=== PATIENT | female | born 1940 | race Caucasian/White ===

== ENCOUNTER → 2017-12-15 | Outpatient (REF) | payer MEDICARE, OTHER ==
[2017-12-15 18:56] LABS: FERRITIN 133 NG/ML (8-252); IRON (FE) 116 UG/DL (50-170); PERCENT SATURATION 36.5 % (13.2-45.0); TOTAL IRON BINDING CAPACITY 318 UG/DL (250-450)
== END ==
LOC: M LAB REF 17:27
DX: D69.3 Immune thrombocytopenic purpura (principal)
CPT/HCPCS: 83550

== ENCOUNTER → 2020-09-03 | Outpatient (REF) | payer MEDICARE, OTHER ==
[~2020-09-03] MED LIST: ASPI81TA26 PO; CALC1TAB23 PO; CALCTAB9 PO; CELE1CAP7 PO; HYDR500C3 PO; SERT50TA29 PO; VALS80TA PO; [UNRECOGNIZED DRUG - CODE] PO
[2020-09-03 14:13] LABS: FERRITIN 1066 NG/ML (8-252); IRON (FE) 108 UG/DL (50-170); PERCENT SATURATION 43.7 % (13.2-45.0); TOTAL IRON BINDING CAPACITY 247 UG/DL (250-450)
[2020-09-03 14:18] LABS: FOLATE 7.6 NG/ML; VITAMIN B12 LEVEL > 2000 PG/ML
== END ==
LOC: M LAB REF 12:29
PROVIDERS: ATTEND Family Medicine
DX: D64.9 Anemia, unspecified (principal); D69.6 Thrombocytopenia, unspecified

== ENCOUNTER → 2020-09-03 | Outpatient (REF) | payer MEDICARE, OTHER | LOC: M LAB REF 12:33 | PROVIDERS: ATTEND Family Medicine | DX: D64.9 Anemia, unspecified (principal); D69.6 Thrombocytopenia, unspecified ==

== ENCOUNTER 2020-09-04 13:12 | Outpatient (CLI) | payer MEDICARE, OTHER ==
[~2020-09-04] VITALS: Ht 152.4 cm; Wt 81.8 kg
[2020-09-04] MEDS ORDERED: diphenhydrAMINE 25 MG PO PO ONE (13:30)
[2020-09-04] MEDS ORDERED: ACETAMINOPHEN 650 MG PO PO ONE (13:30)
[2020-09-04 14:28] VITALS: BP 137/58
[2020-09-04 14:50] VITALS: BP 130/58
[2020-09-04 15:35] VITALS: BP 132/54
[2020-09-04 16:00] VITALS: BP 114/54
[2020-09-04 16:33] VITALS: BP 147/59
== END 2020-09-04 16:30 | disposition home or self-care (01) ==
LOC: M INFU 13:12
PROVIDERS: ATTEND Specialist
DX: D47.3 Essential (hemorrhagic) thrombocythemia (principal)
CPT/HCPCS: 36430; P9016

== ENCOUNTER 2020-09-07 13:19 | Observation (INO) | payer MEDICARE, OTHER ==
[2020-09-07] VITALS (10 sets, daily range): BP systolic 116–145; BP diastolic 46–82
[~2020-09-07] VITALS: Ht 152.4 cm; Wt 81.7 kg
[~2020-09-07 13:19] MED LIST changes: +ASPIRIN 81MG ENTERIC TABLET PO SCH
[2020-09-07 14:35] LABS: MEAN CORPUSCULAR HEMOGLOBIN 38.6 pg (27.0-33.0); MEAN CORPUSCULAR VOLUME 113.3 fl (80.0-96.0); RED BLOOD COUNT 1.66 10^6/uL (4.00-5.40); WHITE BLOOD COUNT 1.9 10^3/uL (4.0-10.0)
[2020-09-07 14:40] LABS: HEMOGLOBIN 6.4 g/dl (12.0-15.5); PLATELET COUNT, AUTOMATED 71 10^3/uL (150-450)
[2020-09-07] MEDS ORDERED: LOSA50TA88 PO (14:50)
[2020-09-07] MEDS ORDERED: HYDR12.55 PO (14:50)
[2020-09-07 14:52] LABS: INR 1.15
[2020-09-07 15:00] LABS: ALBUMIN 2.8 GM/DL (3.2-5.2); ALT/SGPT 50 U/L (12-78); BILIRUBIN,DIRECT 0.4 MG/DL (0.0-0.2); BILIRUBIN,TOTAL 1.1 MG/DL (0.2-1.0); BLOOD UREA NITROGEN 26 MG/DL (7-18); CALCIUM LEVEL 8.2 MG/DL (8.8-10.2); CARBON DIOXIDE LEVEL 28 MEQ/L (21-32); CHLORIDE LEVEL 104 MEQ/L (98-107); CREATININE FOR GFR 1.02 MG/DL (0.55-1.30); GLOMERULAR FILTRATION RATE 55.8 (>39); GLUCOSE, FASTING 90 MG/DL (70-100); LIPASE 273 U/L (73-393); POTASSIUM SERUM 3.7 MEQ/L (3.5-5.1); SODIUM LEVEL 139 MEQ/L (136-145); TOTAL PROTEIN 6.2 GM/DL (6.4-8.2)
[2020-09-07] MEDS ORDERED: FLUTISP NARES (15:06)
[2020-09-07 15:07] LABS: HEMATOCRIT 18.8 % (36.0-47.0)
[2020-09-07] MEDS ORDERED: CYAN2500 SL (15:28)
--- NOTE | 2020-09-07 15:45 | HPEPDOC ---
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 The patient states she's had worsening lethargy, cold/hot flashes, decreased appetite, increased her cigarette with exertion over the past several weeks. She is followed regularly by hematology/oncology for chronic myeloproliferative disorder and anemia. This anemia was believed to be secondary to hydroxyurea and over the past year she has needed several adjustments of this medication. At the beginning of August 2020 her hematology oncologist decreased the dose to 2 tabs daily instead of alternating between a higher dose and 2 tabs during the week. She was recently told over this past 1 week to stop hydroxyurea completely due to concerns about worsening anemia from it. On 09/04/2020 the patient had outpatient PRBC transfusion of 1 unit for hemoglobin done outpatient of 6.3. She states she initially felt slightly improved from this transfusion but then today continued to have symptoms. This is when she called her primary care doctor. Her primary care doctor then referred her to come to the emergency room for further evaluation. Patient denied lightheadedness, dizziness, palpitations, bleeding, chest pains, nausea, vomiting, fevers, chills. In the emergency room, vital signs were stable. Labs showed pancytopenia with WBC 1.9, H/H 6.4/18.8, platelets 71. Creatinine was 1.02 and within normal limits. T bili elevated at 1.1, D bili 0.4, AST slightly high at 40. She had an abnormal ECG showing sinus bradycardia and a left bundle branch block. There were no old ECGs were on file. The patient has no cardiac history but states that she had an echocardiogram done one month ago by her primary care for a murmur. She states she was told echocardiogram showed nonemergent things that [facility] is followed up by him as outpatient. Due to low H/H despite recent transfusion the patient was admitted to hospitalist service for symptomatic anemia requiring transfusion. REVIEW OF SYSTEMS: Neg except for what is mentioned above PAST MEDICAL HISTORY: Chronic myeloproliferative disorder / essential thrombocytopenia on chronic hydroxyurea Arthritis Hypertension Heart murmur Old LBBB Depression PAST SURGICAL HISTORY: BM aspiration 09/2011 Breast lumpectomy FAMILY HISTORY: Father: coronary artery disease. at 78 y/o Mother: lung cancer and breast cancer. at 89 y/o SOCIAL HISTORY: She does not smoke. Social alcohol use. Denies illicit drugs. 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 Lives near [place] PCP: Ciro Charles Heme/onc: Dr. Knox Ambulates with cane No advanced directives, HCP Full Code ALLERGIES: Please see below. HOME MEDICATIONS: Please see below. PHYSICAL EXAMINATION: VS: Please see below CONSTITUTIONAL: No acute distress, resting comfortably, AAO x 3 EYES: PERRLA, EOM intact HENT, MOUTH: Normocephalic, atraumatic, moist mucous membranes NECK: SUPPLE, no JVD, no lymphadenopathy, no carotid bruit CV: Regular rate and rhythm, S1S2 normal, 2/6 systolic murmur, no rubs/gallops RESPIRATORY: Clear to auscultation bilaterally, no rales/rhonchi/wheezes GI: BS positive in 4 quadrants, soft, nontender, nondistended, no rebound or guarding, no organomegaly : Deferred MUSCULOSKELETAL: Normal ROM. No cyanosis, clubbing, swelling, joint deformity, nonpitting lower extremity edema INTEGUMENTARY: Intact, no rashes, no lesions, no erythema NEUROLOGIC: Cranial Nerves II-XII are intact, no focal deficits PSYCHIATRIC: Mood and affect are normal LABORATORY DATA: Please see below IMAGING: None ASSESSMENT: 79-year-old female with past medical history of chronic myeloproliferative disorder/essential thrombocytopenia, hypertension, heart murmur, questionable old left bundle branch block, depression admitted to hospitalist service for symptomatic anemia requiring transfusion. PLAN: Pancytopenia / essential thrombocytopenia / worsening symptomatic anemia possibly 2/2 to hydroxyurea -Hx of chronic myeloproliferative disorder -Patient has been struggling with low blood levels with hydroxyurea as o/p for some time, followed by Dr. Knox heme/onc -Recent 1 U PRBC transfusion on 09/04/20 for Hgb 6.3 -H/H 6.4/18.8 today, to receive 2 U PRBC today, f/u post transfusion H/H -Hydroxyurea has been held for past 1 week per patient -MCV high, f/u Vit B12 and folate levels, occult blood -TB with Dr. Knox in the AM to discuss further treatment, plan HTN -Stable -C/w home med Heart murmur with LBBB (not known about per patient) -ECG showed LBBB, bradycardia -No prior ECG on file to compare -Echocardiogram done 1 mo ago per patient, will request records from PCP office -F/u troponin -C/w ASA (stop if occult +) -Tele Depression -Stable -C/w home med Sinus bradycardia -HR 60, asymptomatic -Not on meds to cause this -Monitor on tele Weakness 07/29 to anemia above -C/w treatment above -PT/OT Arthritis -C/w home celecoxib (stop if occult +) DVT px -SCD teds DISPOSITION: Admitted to observation status. To TB with Dr. Knox in AM. Plan is discharge home when medically improved. Vital Signs Vital Signs Date Time Temp Pulse Resp B/P (MAP) Pulse Ox O2 Delivery O2 Flow Rate FiO2 09/07/20 14:02 09/07/20 13:20 97.4 60 20 99 Room Air Laboratory Data Labs 24H Laboratory Tests 2 09/07/20 14:23: Neutrophils (%) (Auto) , Neutrophils # (Auto) , Nucleated Red Blood Cells % (auto) 0.0, Immature Platelet Fraction 4.3, Prothrombin Time 15.0H, Prothromb Time International Ratio 1.15, Anion Gap 7L, Glomerular Filtration Rate 55.8, Calcium Level 8.2L, Total Bilirubin 1.1H, Direct Bilirubin 0.4H, Aspartate Amino Transf (AST/SGOT) 40H, Alanine Aminotransferase (ALT/SGPT) 50, Alkaline Phosphatase 59, Total Protein 6.2L, Albumin 2.8L, Albumin/Globulin Ratio 0.8L, Lipase 273 09/07/20 15:06: CBC/BMP Laboratory Tests 09/07/20 14:23 Home Medications Scheduled Aspirin (Aspirin EC) 81 Mg Tab, 81 MG PO DAILY 1200 Calcium Citrate/Vitamin D3 (Calcium Cit 315-Vit D3 250 Cpt) 1 Each Tablet, 1 EACH PO DAILY Celecoxib (Celecoxib) 100 Mg Cap, 200 MG PO DAILY Cyanocobalamin (Vitamin B-12) (Vitamin B-12) 2,500 Mcg Tab.subl, 1,250 MCG SL DAILY Hydrochlorothiazide (Hydrochlorothiazide) 12.5 Mg Tablet, 1 TAB PO DAILY Losartan Potassium (Losartan Potassium) 50 Mg Tablet, 1 TAB PO DAILY Sertraline HCl (Sertraline HCl) 50 Mg Tab, 50 MG PO DAILY Scheduled PRN Fluticasone Propionate (Fluticasone Propionate) 16 Gm [place].susp, 1 SPRAY NARES DAILY PRN for CONGESTION Allergies Coded Allergies: No Known Allergies (Unverified , 05/23/18) A-FIB/CHADSVASC A-FIB History Current/History of A-Fib/PAF?: No Current PO Anticoag Therapy: No Age/Risk Factor Scoring CHADSVASC: CHADSVASC Response (Comments) Value Age Risk Factor Age >/= 75 years old 2 Gender Risk Factor Female 1 Hx of CHF No 0 Hx of HTN No 0 Hx of Stroke/TIA/or VTE No 0 Hx of Diabetes No 0 Hx of Vascular Disease No 0 Total 3 Treatment Treatment ordered: NONE Other anticoagulant ordered: CI with pancytopenia, symptomatic anemaAmanda Fox MD Sep 07, 2020 15:44
[2020-09-07 15:49] LABS: ATYPICAL LYMPH 4 % (0-5); LYMPHOCYTES 35 % (16-44); METAMYELOCYTES 1 % (0-0); MONOCYTES 16 % (0-5); MYELOCYTES 2 % (0-0); NEUTROPHILS 34 % (28-66)
[2020-09-07 15:50] LABS: ANISOCYTOSIS 2+; PLATELET ESTIMATE DECREASED (NORMAL)
[2020-09-07 15:57] LABS: RSV AMPLIFICATION NEGATIVE (NEGATIVE)
[2020-09-07] MEDS ORDERED: FLUTICASONE PROP 0.05% NASAL SPRAY 16 GM (FLONASE) NARES PRN (16:20)
[2020-09-07 17:44] LABS: TROPONIN I < 0.02 NG/ML (< 0.10)
--- NOTE | 2020-09-07 19:21 | ECGEPIP ---
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
[2020-09-07] MEDS ORDERED: ACETAMINOPHEN TAB 650MG DOSE (2X325MG) PO PRN (23:10)
[2020-09-07] MEDS ORDERED: RAMELTEON 8 MG TAB (ROZEREM) PO PRN (23:10)
[2020-09-07 23:19] LABS: HEMATOCRIT 26.1 % (36.0-47.0)
[2020-09-08 06:00] VITALS: BP 122/60
[2020-09-08 06:56] LABS: HEMATOCRIT 26.2 % (36.0-47.0); HEMOGLOBIN 8.9 g/dl (12.0-15.5); MEAN CORPUSCULAR HEMOGLOBIN 34.1 pg (27.0-33.0); MEAN CORPUSCULAR VOLUME 100.4 fl (80.0-96.0); RED BLOOD COUNT 2.61 10^6/uL (4.00-5.40); WHITE BLOOD COUNT 2.3 10^3/uL (4.0-10.0)
[2020-09-08 06:59] LABS: PLATELET COUNT, AUTOMATED 61 10^3/uL (150-450)
[2020-09-08 07:20] LABS: ALBUMIN 2.6 GM/DL (3.2-5.2); CREATININE FOR GFR 1.01 MG/DL (0.55-1.30); GLOMERULAR FILTRATION RATE 56.4 (>39); POTASSIUM SERUM 3.7 MEQ/L (3.5-5.1); TOTAL PROTEIN 5.8 GM/DL (6.4-8.2)
[2020-09-08 08:32] VITALS: BP 138/68
[2020-09-08] MEDS ORDERED: CelecoXIB (CeleBREX) 100 MG CAP PO SCH (09:00)
[2020-09-08] MEDS ORDERED: SERTRALINE HCL 50 MG TAB PO SCH (09:00)
[2020-09-08] MEDS ORDERED: hydroCHLOROthiazide 12.5 MG CAPSULE PO SCH (09:00)
[2020-09-08] MEDS ORDERED: LOSARTAN 50MG TABLET PO SCH (09:00)
[2020-09-08 10:44] LABS: FOLATE 8.7 NG/ML (>5.4); VITAMIN B12 LEVEL > 2000 PG/ML (247-911)
--- NOTE | 2020-09-08 16:17 | DS.PDOC ---
Discharge Summary General Date of Admission Sep 07, 2020 at 13:20 Date of Discharge 09/08/20 Attending Physician: Amanda Ag MD Discharge Summary HISTORY OF PRESENT ILLNESS: Patient is a 79-year-old female with past medical history of chronic myeloproliferative disorder/essential thrombocytopenia, hypertension, heart murmur, questionable old left bundle branch block, depression who presented to [facility] emergency room after being told by her primary care provider to come in for further evaluation for increased shortness of breath and weakness. The patient states she's had worsening lethargy, cold/hot flashes, decreased appetite, increased her cigarette with exertion over the past several weeks. She is followed regularly by hematology/oncology for chronic myeloproliferative disorder and anemia. This anemia was believed to be secondary to hydroxyurea and over the past year she has needed several adjustments of this medication. At the beginning of August 2020 her hematology oncologist decreased the dose to 2 tabs daily instead of alternating between a higher dose and 2 tabs during the week. She was recently told over this past 1 week to stop hydroxyurea completely due to concerns about worsening anemia from it. On 09/04/2020 the patient had outpatient PRBC transfusion of 1 unit for hemoglobin done outpatient of 6.3. She states she initially felt slightly improved from this transfusion but then today continued to have symptoms. This is when she called her primary care doctor. Her primary care doctor then referred her to come to the emergency room for further evaluation. Patient denied lightheadedness, dizziness, palpitations, bleeding, chest pains, nausea, vomiting, fevers, chills. In the emergency room, vital signs were stable. Labs showed pancytopenia with WBC 1.9, H/H 6.4/18.8, platelets 71. Creatinine was 1.02 and within normal limits. T bili elevated at 1.1, D bili 0.4, AST slightly high at 40. She had an abnormal ECG showing sinus bradycardia and a left bundle branch block. There were no old ECGs were on file. The patient has no cardiac history but states that she had an echocardiogram done one month ago by her primary care for a murmur. She states she was told echocardiogram showed nonemergent things that which is followed up by him as outpatient. Due to low H/H despite recent transfusion the patient was admitted to hospitalist service for symptomatic anemia requiring transfusion. HOSPITAL COURSE: Patient had 2 U PRBC transfused without any issues overnight. On AM of 09/08/20 patient's CBC showed much improvement. H/H corrected appropriately at 8.9/26.2. I discussed the case with Dr. 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 We will pass on to the office that Dr. Knox would also like weekly CBC's drawn. Patient was updated. Other anemia labs were ordered, including occult blood. I asked if there was any concern by hematology for other sources of bleeding and they are not- they think this is very much from the hydroxyurea she was on prior. [facility] patient felt improved and was discharged home in stable condition. PAST MEDICAL HISTORY: Chronic myeloproliferative disorder / essential thrombocytopenia on chronic hydroxyurea Arthritis Hypertension Heart murmur Old LBBB Depression PAST SURGICAL HISTORY: BM aspiration 09/2011 Breast lumpectomy FAMILY HISTORY: Father: coronary artery disease. at 78 y/o Mother: lung cancer and breast cancer. at 89 y/o SOCIAL HISTORY: She does not smoke. Social alcohol use. Denies illicit drugs. 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 Lives near [place] PCP: Ciro Charles Heme/onc: Dr. Knox Ambulates with cane No advanced directives, HCP Full Code ALLERGIES: Please see below. HOME MEDICATIONS: Please see below. PHYSICAL EXAMINATION: VS: Please see below CONSTITUTIONAL: No acute distress, resting comfortably, AAO x 3 EYES: PERRLA, EOM intact HENT, MOUTH: Normocephalic, atraumatic, moist mucous membranes NECK: SUPPLE, no JVD, no lymphadenopathy, no carotid bruit CV: Regular rate and rhythm, S1S2 normal, 2/6 systolic murmur, no rubs/gallops RESPIRATORY: Clear to auscultation bilaterally, no rales/rhonchi/wheezes GI: BS positive in 4 quadrants, soft, nontender, nondistended, no rebound or guarding, no organomegaly : Deferred MUSCULOSKELETAL: Normal ROM. No cyanosis, clubbing, swelling, joint deformity, nonpitting lower extremity edema INTEGUMENTARY: Intact, no rashes, no lesions, no erythema NEUROLOGIC: Cranial Nerves II-XII are intact, no focal deficits PSYCHIATRIC: Mood and affect are normal LABORATORY DATA: Please see below IMAGING: None ASSESSMENT: 79-year-old female with past medical history of chronic myeloproliferative disorder/essential thrombocytopenia, hypertension, heart murmur, questionable old left bundle branch block, depression admitted to hospitalist service for symptomatic anemia requiring transfusion. PLAN: Pancytopenia / essential thrombocytopenia / worsening symptomatic anemia possibly 2/2 to hydroxyurea -Hx of chronic myeloproliferative disorder -Patient has been struggling with low blood levels with hydroxyurea as o/p for some time -Recent 1 U PRBC transfusion on 09/04/20 for Hgb 6.3 -S/p 2 U PRBC this stay, improved H/H this AM of 8.9/26.2 -Hydroxyurea has been held for past 1 week per patient and will continue to be held per hematology/oncology -Discussed case with Dr. Knox prior to discharge. Patient will need f/u in his office in 1 week and weekly CBC's that he will follow. HTN -Stable -C/w home med Heart murmur with LBBB (not known about per patient) -ECG showed LBBB, bradycardia -Denies chest pain, shortness of breath, palpitations -No prior ECG on file to compare -Echocardiogram done 1 mo ago per patient -Trop neg -C/w ASA (stop if occult +) -Discussed the findings above with patient who will discuss with PCP. Recommend cardiology referral as o/p Depression -Stable -C/w home med Sinus bradycardia -HR 60, asymptomatic -Not on meds to cause this -Monitor o/p Arthritis -C/w home celecoxib DVT px -SCD teds DISPOSITION: Discharged today to f/u with PCP, hematology/oncology. REcommend cardiology referral as o/p TIME SPENT ON DISCHARGE: 35 minutes. Vital Signs/I&Os Vital Signs Date Time Temp Pulse Resp B/P (MAP) Pulse Ox O2 Delivery O2 Flow Rate FiO2 09/08/20 08:32 138/68 09/08/20 06:00 97.2 54 18 99 Room Air I&O- Last 24 Hours up to 6 AM 09/08/20 06:00 Intake Total 2245 ml Output Total 400 ml Balance 1845 ml Laboratory Data Labs 24H Laboratory Tests 2 09/08/20 06:09: Nucleated Red Blood Cells % (auto) 0.0, Anion Gap 6L, Glomerular Filtration Rate 56.4, Calcium Level 8.0L, Total Bilirubin 1.0, Aspartate Amino Transf (AST/SGOT) 36, Alanine Aminotransferase (ALT/SGPT) 52, Alkaline Phosphatase 62, Total Protein 5.8L, Albumin 2.6L, Albumin/Globulin Ratio 0.8L CBC/BMP Laboratory Tests 09/07/20 22:51 09/08/20 06:09 Discharge Medications Scheduled Aspirin (Aspirin EC) 81 Mg Tab, 81 MG PO DAILY, (Reported) 1200 Calcium Citrate/Vitamin D3 (Calcium Cit 315-Vit D3 250 Cpt) 1 Each Tablet, 1 EA CH PO DAILY, (Reported) Celecoxib (Celecoxib) 100 Mg Cap, 200 MG PO DAILY, (Reported) Cyanocobalamin (Vitamin B-12) (Vitamin B-12) 2,500 Mcg Tab.subl, 1,250 MCG SL DAILY, (Reported) Hydrochlorothiazide (Hydrochlorothiazide) 12.5 Mg Tablet, 1 TAB PO DAILY, (Reported) Losartan Potassium (Losartan Potassium) 50 Mg Tablet, 1 TAB PO DAILY, (Reported) Sertraline HCl (Sertraline HCl) 50 Mg Tab, 50 MG PO DAILY, (Reported) Scheduled PRN Fluticasone Propionate (Fluticasone Propionate) 16 Gm [place].susp, 1 SPRAY NARES DAILY PRN for CONGESTION, (Reported) Allergies Coded Allergies: No Known Allergies (Unverified , 05/23/18) Amanda Ag MD Sep 08, 2020 16:17
== END 2020-09-08 11:54 | disposition home or self-care (01) ==
LOC: M ED 13:19 → M ED INP 13:20 → ENRESERV 16:00 → M MSPAV 17:32
PROVIDERS: ADMIT Internal Medicine; ATTEND Internal Medicine
DX: D61.818 Other pancytopenia (principal); D47.1 Chronic myeloproliferative disease; D47.3 Essential (hemorrhagic) thrombocythemia; I10 Essential (primary) hypertension; R01.1 Cardiac murmur, unspecified; F32.9 Major depressive disorder, single episode, unspecified; R00.1 Bradycardia, unspecified; Z79.82 Long term (current) use of aspirin; Z79.899 Other long term (current) drug therapy
CPT/HCPCS: 36415; 36430; 80048; 80053; 80076; 82607; 82746; 83690; 84484; 85014; 85018; 85025; 85027; 85049; 85055; 85610; 86850; 86900; 86901; 86920; 87631; 93005; 93041; 99285; G0378; P9016

== ENCOUNTER 2020-10-09 14:11 | Outpatient (CLI) | payer MEDICARE, OTHER ==
[~2020-10-09] VITALS: Ht 152.4 cm; Wt 81.8 kg
[~2020-10-09 14:11] MED LIST changes: -ASPIRIN 81MG ENTERIC TABLET PO SCH; +CYAN2500 SL; +FLUTISP NARES; +HYDR12.55 PO; +LOSA50TA88 PO
[2020-10-09 14:20] VITALS: BP 137/64
[2020-10-09 14:52] VITALS: BP 125/59
[2020-10-09 16:05] VITALS: BP 159/70
[2020-10-09 16:15] VITALS: BP 159/70
== END 2020-10-09 16:20 | disposition home or self-care (01) ==
LOC: M INFU 14:11
PROVIDERS: ATTEND Specialist
DX: D64.9 Anemia, unspecified (principal); D47.3 Essential (hemorrhagic) thrombocythemia; D47.1 Chronic myeloproliferative disease; Z79.899 Other long term (current) drug therapy
CPT/HCPCS: 36415; 36430; 86850; 86900; 86901; 86920; P9016

== ENCOUNTER 2020-11-11 05:35 | Emergency (ER) | payer MEDICARE, OTHER ==
[~2020-11-11] VITALS: Ht 152.4 cm; Wt 79.1 kg
[2020-11-11] MEDS ORDERED: RAME8TAB2 (05:43)
[2020-11-11] MEDS ORDERED: MORPHINE 4 MG/ML 1ML VIAL/SYRINGE (J2270) IV ONE (07:15)
[2020-11-11] MEDS ORDERED: ONDANSETRON 4MG/2ML VIAL IV ONE (08:05)
[2020-11-11] MEDS ORDERED: ONDANSETRON 4MG/2ML VIAL As Ordered ONE (08:06)
[2020-11-11 08:16] LABS: HEMATOCRIT 25.3 % (36.0-47.0); HEMOGLOBIN 7.6 g/dl (12.0-15.5); MEAN CORPUSCULAR HEMOGLOBIN 30.9 pg (27.0-33.0); MEAN CORPUSCULAR VOLUME 102.8 fl (80.0-96.0); PLATELET COUNT, AUTOMATED 223 10^3/uL (150-450); RED BLOOD COUNT 2.46 10^6/uL (4.00-5.40); WHITE BLOOD COUNT 5.4 10^3/uL (4.0-10.0)
[2020-11-11 08:39] LABS: INR 1.17; PROTHROMBIN TIME 15.2 SECONDS (12.5-14.3)
[2020-11-11 08:42] LABS: D-DIMER QUANT 639.59 ng/ml (<500)
[2020-11-11 08:43] LABS: ANISOCYTOSIS 4+; BASOPHILS 1 % (0-1); EOSINOPHILS 1 % (0-3); LYMPHOCYTES 12 % (16-44); METAMYELOCYTES 2 % (0-0); MONOCYTES 12 % (0-5); MYELOCYTES 1 % (0-0); NEUTROPHILS 70 % (28-66); PLATELET ESTIMATE NORMAL (NORMAL); POLYCHROMASIA 1+
[2020-11-11 08:44] LABS: OVALOCYTES 1+
[2020-11-11 08:46] LABS: ALBUMIN 2.6 GM/DL (3.2-5.2); ALT/SGPT 26 U/L (12-78); BILIRUBIN,DIRECT 0.4 MG/DL (0.0-0.2); BILIRUBIN,TOTAL 0.8 MG/DL (0.2-1.0); CK-MB VALUE MASS < 1.0 NG/ML (<3.6); CPK CREATINE PHOSPHOKINASE 28 U/L (26-192); LIPASE 142 U/L (73-393); MB/CK RELATIVE INDEX 3.57 (< OR =4); NT-PRO BNP 993 PG/ML (<450); TOTAL PROTEIN 6.7 GM/DL (6.4-8.2); TROPONIN I < 0.02 NG/ML (< 0.10)
[2020-11-11 08:56] LABS: ERYTHROCYTE SEDIMENTATION RATE 127 mm/hr (0-30)
[2020-11-11] MEDS ORDERED: ISOVUE-370 76% 100ML VIAL As Ordered ONE (09:25)
--- NOTE | 2020-11-11 10:17 | REP ---
INDICATION: Chest/back pain. COMPARISON: None. TECHNIQUE: CT angiogram chest performed following the intravenous administration of 100 cc of Isovue 370. Sagittal and coronal reconstruction images are performed. FINDINGS: Lungs: Clear, no infiltrate or nodule. There are mild scattered interstitial fibrotic changes. There is an 8 mm bulla in the posterior left upper lobe. Mediastinum: No adenopathy. Pulmonary arteries: No evidence of pulmonary embolism. Myranda: No adenopathy. Axilla: No adenopathy. Pleura: There is a tiny right pleural effusion. Heart: Mildly enlarged. Thoracic aorta: No aneurysm or dissection. Visualized osseous structures: There are degenerative changes of the spine without compression deformity. IMPRESSION: No CT evidence of pulmonary embolism or aortic dissection. No infiltrate seen. Tiny right pleural effusion. Very mild cardiomegaly. <Electronically signed by Don Escamilla > 11/11/20 [id number]
--- NOTE | 2020-11-11 10:23 | REP ---
INDICATION: chast/back pain COMPARISON: None. TECHNIQUE: CT Scan of the abdomen and pelvis was performed with intravenous administration of 100 cc of Isovue 370, without oral contrast. Sagittal and coronal reconstruction images are performed. FINDINGS: Lung bases: There is a small hiatal hernia. Liver: Normal Gallbladder: The gallbladder is moderately distended with no CT evidence of gallbladder wall edema.. Spleen: Normal. Adrenals: Normal. Pancreas: Normal. Kidneys: Normal. Small and large bowel: There is left colonic and sigmoid diverticulosis without evidence of acute diverticulitis. Free fluid: None. Abdominal aorta: No aneurysm or dissection. Adenopathy: None. Appendix: Not inflamed. Osseous structures: There are degenerative changes of the spine without compression deformity. Pelvis: No mass. IMPRESSION: Small hiatal hernia. Moderate gallbladder distention with no CT evidence of gallbladder wall edema. Left colonic diverticulosis without acute diverticulitis. <Electronically signed by Don Escamilla > 11/11/20 [id number]
[2020-11-11] MEDS ORDERED: methocarbamoL 500 MG TAB PO ONE (10:40)
[2020-11-11] MEDS ORDERED: PERCOCET 5MG/325MG TAB PO ONE (11:25)
--- NOTE | 2020-11-11 20:10 | REPVR ---
PROCEDURE INFORMATION: Exam: MR Lumbar Spine Without Contrast Exam date and time: 11/11/2020 5:51 PM Age: 79 years old Clinical indication: Patient HX: Back pain, urinary incontinence TECHNIQUE: Imaging protocol: Multiplanar magnetic resonance images of the lumbar spine without intravenous contrast. COMPARISON: No relevant prior studies available. FINDINGS: Spinal cord: Conus is normal in size with no evidence of abnormal bright signal intensity in ending at L1. L3-L4: There is moderate broad-based disc protrusion causing moderate impression on the thecal sac. There is severe right L3 neural foraminal narrowing secondary to facet hypertrophy and disc protrusion. L4-L5: There is a large left paracentral disc protrusion causing moderate impression on the anterior left side of the thecal sac and also causing moderate left L4 neural foraminal narrowing. L5-S1: There is mild posterior disc protrusion. There is facet hypertrophy causing narrowing of the left L5 neural foramina. Other bones/joints: The marrow space has a normal signal intensity. IMPRESSION: 1. The L3-L4 level demonstrates moderate broad-based disc protrusion causing moderate impression on the thecal sac and also severe right L3 neural foraminal narrowing. 2. The L4-L5 level demonstrates a large left paracentral disc protrusion causing moderate impression on the anterior left side of the thecal sac and also causing moderate left L4 neural foraminal narrowing. 3. There is moderate left L5 neural foraminal narrowing. Electronically signed by: Kevan Sun On 11/11/2020 20:10:28 PM
[2020-11-11 20:32] VITALS: BP 175/74
--- NOTE | 2020-11-11 20:34 | ECGEPIP ---
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
[2020-11-11] MEDS ORDERED: methocarbamoL 750 MG TAB PO ONE (20:55)
[2020-11-11] MEDS ORDERED: ACETAMINOPHEN 500 MG TAB PO ONE (20:55)
[2020-11-11] MEDS ORDERED: METH-1165 PO (21:10)
[2020-11-11] MEDS ORDERED: ASPE4PAD TOP (21:10)
--- NOTE | 2020-11-12 10:22 | ED PDOC ---
Post-Departure Follow-Up mri ls spine faxed to dr kendrick for fu Claus Browne MD November 12, 2020 10:22
--- NOTE | 2020-11-12 10:24 | ED PDOC ---
Post-Departure Follow-Up ct abd/p report faxed to dr kendrick for Claus Browne MD November 12, 2020 10:24
== END 2020-11-11 21:29 | disposition home or self-care (01) ==
LOC: M ED 05:35
DX: I44.7 Left bundle-branch block, unspecified (principal); M51.26 Other intervertebral disc displacement, lumbar region; M54.5 Low back pain; R07.89 Other chest pain; R06.02 Shortness of breath; I10 Essential (primary) hypertension; K21.9 Gastro-esophageal reflux disease without esophagitis; F32.9 Major depressive disorder, single episode, unspecified; G47.00 Insomnia, unspecified; D47.3 Essential (hemorrhagic) thrombocythemia; K57.30 Diverticulosis of large intestine without perforation or abscess without bleeding; K82.8 Other specified diseases of gallbladder; Z79.82 Long term (current) use of aspirin; Z79.899 Other long term (current) drug therapy
CPT/HCPCS: 36415; 71275; 72148; 74177; 80047; 80076; 82550; 82553; 83690; 83880; 84484; 85025; 85379; 85610; 85652; 85730; 86140; 93005; 96374; 96375; 99284; J2270; J2405; Q9967

== ENCOUNTER 2020-12-06 15:32 | Emergency (ER) | payer MEDICARE, OTHER ==
[~2020-12-06] VITALS: Ht 152.4 cm; Wt 73.6 kg
[~2020-12-06 15:32] MED LIST changes: +ASPE4PAD TOP; +METH-1165 PO; +RAME8TAB2
[2020-12-06] MEDS ORDERED: diazePAM 10MG/2ML SYRINGE (J3360 PER 5MG) IV ONE (17:20)
[2020-12-06] MEDS ORDERED: NS 1,000 ML IV ONE (17:20)
--- NOTE | 2020-12-06 18:35 | REP ---
INDICATION: chest pain. COMPARISON: No comparison chest x-ray. Comparison chest CT study 11/11/2020. TECHNIQUE: Two views.. FINDINGS: The lungs are well inflated and clear. Pleural angles are sharp. Heart size is borderline, cardiothoracic ratio is 40 9.3%. Pulmonary vasculature is not increased. Pleural angles are sharp. No infiltrate is seen. No acute bony abnormality is seen. IMPRESSION: Borderline heart size. Otherwise no acute disease.. <Electronically signed by Kamar Chen > 12/06/20 [id number]
[2020-12-06 18:52] LABS: BASO % 0.6 % (0.0-1.0); EOS % 0.2 % (0.0-3.0); HEMATOCRIT 24.8 % (36.0-47.0); HEMOGLOBIN 7.5 g/dl (12.0-15.5); LYMPH % 20.1 % (24.0-44.0); MEAN CORPUSCULAR HGB CONC 30.2 g/dl (32.0-36.5); MEAN CORPUSCULAR VOLUME 102.5 fl (80.0-96.0); MONO # 0.7 10^3/uL (0.0-0.8); NEUTROPHILS # 2.7 10^3/uL (1.5-8.5); NEUTROPHILS % 56.7 % (36.0-66.0); PLATELET COUNT, AUTOMATED 192 10^3/uL (150-450); RED BLOOD COUNT 2.42 10^6/uL (4.00-5.40); WHITE BLOOD COUNT 4.8 10^3/uL (4.0-10.0)
[2020-12-06 19:25] LABS: ALBUMIN 2.4 GM/DL (3.2-5.2); ALT/SGPT 29 U/L (12-78); BILIRUBIN,DIRECT 0.3 MG/DL (0.0-0.2); BILIRUBIN,TOTAL 0.6 MG/DL (0.2-1.0); CK-MB VALUE MASS < 1.0 NG/ML (<3.6); CPK CREATINE PHOSPHOKINASE 16 U/L (26-192); FREE THYROXINE INDEX 2.8 % (1.3-4.8); LIPASE 231 U/L (73-393); MB/CK RELATIVE INDEX 6.25 (< OR =4); T UPTAKE 34 % (30-39); THYROID STIMULATING HORMONE 0.686 uIU/ML (0.358-3.740); THYROXINE (T4) 8.2 UG/DL (4.5-12.0); TOTAL PROTEIN 6.4 GM/DL (6.4-8.2); TROPONIN I < 0.02 NG/ML (< 0.10)
[2020-12-06] MEDS ORDERED: ISOVUE-370 76% 100ML VIAL As Ordered ONE (20:27)
--- NOTE | 2020-12-06 20:58 | REPVR ---
PROCEDURE INFORMATION: Exam: CTA Chest With Contrast Exam date and time: 12/06/2020 8:30 PM Age: 80 years old Clinical indication: Other: Elev d dimer, SOB, substernal cp, thoracic back pain TECHNIQUE: Imaging protocol: Computed tomographic angiography of the chest with contrast. 3D rendering (Not supervised by radiologist): MIP and/or 3D reconstructed images were created by the technologist. Radiation optimization: All CT scans at this facility use at least one of these dose optimization techniques: automated exposure control; mA and/or kV adjustment per patient size (includes targeted exams where dose is matched to clinical indication); or iterative reconstruction. Contrast material: ISOVUE 370; Contrast volume: 75 ml; Contrast route: INTRAVENOUS (IV); COMPARISON: CT ANGIO CHEST 11/11/2020 9:27 AM FINDINGS: Pulmonary arteries: There are no pulmonary emboli. Aorta: There is mild atherosclerosis in the thoracic aorta. There is no aortic dissection or aneurysm. Lungs: Bibasilar atelectasis. Lungs otherwise clear. Pleural spaces: Small bilateral pleural effusions. Heart: There is mild atherosclerotic calcification of the coronary arteries. Lymph nodes: Unremarkable. No enlarged lymph nodes. Bones/joints: The spine demonstrates mild degenerative changes. Dextroscoliosis. Mild cardiomegaly. Soft tissues: Unremarkable. IMPRESSION: 1. Small bilateral pleural effusions. 2. There is no aortic dissection or aneurysm. 3. Dextroscoliosis. Mild cardiomegaly. 4. There are no pulmonary emboli. Electronically signed by: Vipul Tamayo On 12/06/2020 20:58:29 PM
[2020-12-06 21:30] VITALS: BP 114/57
[2020-12-06] MEDS ORDERED: MACR100C43 PO (21:36)
[2020-12-06] MEDS ORDERED: TRAM50TA2 PO (21:36)
[2020-12-06] MEDS ORDERED: traMADol 50 MG TAB PO ONE (21:40)
[2020-12-06] MEDS ORDERED: NITROFURANTOIN (MACROBID) 100 MG CAP PO ONE (21:40)
--- NOTE | 2020-12-07 07:17 | ED PDOC ---
Post-Departure Follow-Up radiologyy proetr tfaxed to Yumiko Multani MD Dec 07, 2020 07:17
--- NOTE | 2020-12-08 16:41 | ECGEPIP ---
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
== END 2020-12-06 21:58 | disposition home or self-care (01) ==
LOC: M ED 15:32
DX: M54.5 Low back pain (principal); M54.6 Pain in thoracic spine; N39.0 Urinary tract infection, site not specified; R53.83 Other fatigue; J90 Pleural effusion, not elsewhere classified; M41.80 Other forms of scoliosis, site unspecified; K21.9 Gastro-esophageal reflux disease without esophagitis; R06.02 Shortness of breath; Z79.82 Long term (current) use of aspirin; Z79.899 Other long term (current) drug therapy; Z88.8 Allergy status to other drugs, medicaments and biological substances
CPT/HCPCS: 36415; 71046; 71275; 80047; 80076; 81001; 82550; 82553; 83690; 84436; 84443; 84479; 84484; 85025; 85379; 87088; 87186; 93005; 93041; 94760; 96361; 96374; 99285; J3360; Q9967

== ENCOUNTER → 2021-01-01 | Outpatient (REF) | payer MEDICARE, OTHER ==
[~2021-01-01] MED LIST changes: +AMLO1TAB24 PO; +ATOR40TA75 PO; +CYCL5TAB PO; +DICL20GE TP; +FLOR250C PO; +LIDO1PAD13 TOP; +LOPE1CAP5 PO; +MACR100C43 PO; +METO1TAB32 PO; +NEUR100C PO; +THERTAB52 PO; +TRAM50TA2 PO
[2021-01-01 20:10] LABS: ALBUMIN 2.3 GM/DL (3.2-5.2); BILIRUBIN,TOTAL 0.5 MG/DL (0.2-1.0); CREATININE FOR GFR 1.14 MG/DL (0.55-1.30); GLOMERULAR FILTRATION RATE 48.9 (>39); POTASSIUM SERUM 3.6 MEQ/L (3.5-5.1); THYROID STIMULATING HORMONE 0.66 uIU/ML (0.358-3.740); TOTAL PROTEIN 7.6 GM/DL (6.4-8.2)
== END ==
LOC: M LAB REF 19:43
PROVIDERS: ATTEND Nurse Practitioner Adult Health
DX: N39.46 Mixed incontinence (principal); E07.9 Disorder of thyroid, unspecified